=== PATIENT | female | born 1975 | race Caucasian/White ===

== ENCOUNTER 2021-01-24 06:17 | Day surgery (SDC) | payer MEDICAID ==
[2021-01-21 15:24] LABS: COVID AG,FIA SOURCE NASOPHARYNGEAL
[~2021-01-24] VITALS: Ht 167.6 cm; Wt 88.6 kg
[~2021-01-24 06:17] MED LIST: ALBU8.5H3 IH; AMIT50TA3 PO; CITA10TA99 PO; DULO-8 PO; FLUT16H NASAL; FOLI-130 PO; LORA-999 PO; METH2.5 PO; MONT-35 PO; OMEP10 PO; SODIUM CHLORIDE 0.9% 1,000 ML ONE; VITAMIN D PO
[2021-01-24] MEDS ORDERED: BENZOCAINE 20% 50 MCG/SPRAY 57 GM TP ONE (06:18)
[2021-01-24] MEDS ORDERED: LIDOCAINE 4% 50 ML SOLUTION TP ONE (06:18)
[2021-01-24] MEDS ORDERED: ALBUTEROL SULFATE 2.5 MG/0.5 ML NEB SOLUTION NEB ONE (06:18)
[2021-01-24] MEDS ORDERED: LIDOCAINE 2% 30 ML JELLY TP ONE (06:18)
[2021-01-24] MEDS ORDERED: SODIUM CHLORIDE 0.9% 1,000 ML IV ONE (06:30)
[2021-01-24] MEDS ORDERED: FentaNYL CITRATE PF 100 MCG/2 ML VIAL ONE (08:23)
[2021-01-24] MEDS ORDERED: MIDAZOLAM HCL 2 MG/2 ML VIAL ONE (08:23)
[2021-01-24] MEDS ORDERED: MethylPREDNISolone SOD SUCC 125 MG/2 ML VIAL IVP ONE (09:00)
[2021-01-24] MEDS ORDERED: MethylPREDNISolone SOD SUCC 125 MG/2 ML VIAL ONE (10:03)
[2021-01-24] MEDS ORDERED: OXYGEN THERAPY IH SCH (20:00)
== END 2021-01-24 10:40 | disposition home or self-care (01) ==
LOC: SURGERY 06:17
PROVIDERS: ATTEND Internal Medicine Critical Care Medicine
DX: J38.4 Edema of larynx (principal); B37.0 Candidal stomatitis; Z98.890 Other specified postprocedural states; Z85.118 Personal history of other malignant neoplasm of bronchus and lung; Z79.899 Other long term (current) drug therapy
CPT/HCPCS: 31623; 31624; 71045; 87015; 87070; 87101; 87205; 87206; 87220; 87426; 88108; 88184; 88185; 88312; C9803; J2250; J2930; J3010; J7030; J7613; Z7610